=== PATIENT | female | born 1945 | race Caucasian/White ===

== ENCOUNTER → 2016-12-29 | Outpatient (CLI) | payer OTHER, MEDICARE ==
[2016-12-31 23:07] LABS: ASPERGILLUS IGE <0.10 kU/L (Class 0); BERMUDA GRASS <0.10 kU/L (Class 0); BOXELDER/MAPLE <0.10 kU/L (Class 0); CAT <0.10 kU/L (Class 0); CLADOSPORIUM <0.10 kU/L (Class 0); COCKROACH <0.10 kU/L (Class 0); D. FARINAE <0.10 kU/L (Class 0); D. PTERONYSSINUS <0.10 kU/L (Class 0); DOG DANDER <0.10 kU/L (Class 0); IgE-ALLERGY PROFILE 2 IU/mL (0-100); MOUNTAIN CEDAR <0.10 kU/L (Class 0); MULBERRY IGE <0.10 kU/L (Class 0); NETTLE IGE <0.10 kU/L (Class 0); OAK <0.10 kU/L (Class 0); PENICILLIUM NOTATUM <0.10 kU/L (Class 0); RUSSIAN THISTLE IGE <0.10 kU/L (Class 0); SHEEP SORREL IGE <0.10 kU/L (Class 0); SHORT RAGWEED <0.10 kU/L (Class 0); TIMOTHY IGE <0.10 kU/L (Class 0); WHITE ASH IGE <0.10 kU/L (Class 0)
== END ==
LOC: LABMALL 15:00
PROVIDERS: Internal Medicine Pulmonary Disease
DX: G47.33 Obstructive sleep apnea (adult) (pediatric) (principal); J30.9 Allergic rhinitis, unspecified; R05 Cough